=== PATIENT | female | born 1975 | race Caucasian/White ===

== ENCOUNTER 2022-10-18 10:38 | Outpatient (CLI) | payer BC, SELFPAY | END 2022-10-18 10:39 | disposition home or self-care (01) | LOC: NFLDREF 10:39 | PROVIDERS: Visit Provider Obstetrics & Gynecology | DX: N92.0 Excessive and frequent menstruation with regular cycle (principal) | CPT/HCPCS: 84443 ==

== ENCOUNTER 2022-10-22 13:59 | Outpatient (CLI) | payer BC, SELFPAY ==
--- NOTE | 2022-10-22 14:00 | CRLHL7_ITS ---
For Patients: As a result of the Century Cures Act, medical imaging exams and procedure reports are released immediately into your electronic medical record. You may view this report before your referring provider. If you have questions, please contact your health care provider. INDICATION: Menorrhagia. COMPARISON: Pelvic ultrasound 04/15/2017. TECHNIQUE: 2D dotson scale and color Doppler images were acquired of the pelvis using a transabdominal and transvaginal approach. FINDINGS: The uterus is anteverted in position. The uterus is enlarged measuring 14.4 cm in length by 8.2 cm in AP diameter by 10.5 cm in transverse dimension. There is a 8.5 x 6.4 x 8.2 cm fibroid in the posterior mid to upper uterus which causes mass effect on the endometrium. This has increased in size since prior exam, previously measuring 3.3 x 3.2 x 4.0 cm. The endometrial lining measures 7 mm in composite thickness. Multiple large nabothian cysts in the cervix. The right ovary was not visualized. The left ovary measures 3.2 x 1.5 x 2.3 cm and demonstrates presence of blood flow. No free fluid in the cul-de-sac. IMPRESSION: 1. Large posterior uterine fibroid which causes mass effect on the endometrium. 2. Endometrial lining within normal limits for a premenopausal female. 3. Multiple large nabothian cysts. Dictated by Amirah Pedraza MD @ 10/24/2022 6:09:28 PM (Electronically Signed)
== END 2022-10-22 14:00 | disposition home or self-care (01) ==
LOC: US 13:59
PROVIDERS: Visit Provider Obstetrics & Gynecology
DX: N92.0 Excessive and frequent menstruation with regular cycle (principal); D25.9 Leiomyoma of uterus, unspecified; N88.8 Other specified noninflammatory disorders of cervix uteri
CPT/HCPCS: 76830; 76856

== ENCOUNTER 2024-09-25 08:56 | Outpatient (CLI) | payer OTHER, SELFPAY | END 2024-09-25 08:57 | disposition home or self-care (01) | LOC: NFLDREF 09-29 00:42 | PROVIDERS: PCP Emergency Medicine; Referring Provider Emergency Medicine; Visit Provider Emergency Medicine | DX: D50.9 Iron deficiency anemia, unspecified (principal); E55.9 Vitamin D deficiency, unspecified; K76.0 Fatty (change of) liver, not elsewhere classified; R41.89 Other symptoms and signs involving cognitive functions and awareness; Z13.1 Encounter for screening for diabetes mellitus | CPT/HCPCS: 80053; 80061; 82306; 82607; 82728; 83540; 83550; 84443 ==

== ENCOUNTER 2024-09-27 09:35 | Outpatient (CLI) | payer OTHER, SELFPAY ==
[2024-09-29 05:19] LABS: HPV Source Cervical; HPV, High Risk by TMA Not Detected
== END 2024-09-27 09:36 | disposition home or self-care (01) ==
PROVIDERS: PCP Emergency Medicine; Visit Provider Emergency Medicine
DX: D50.9 Iron deficiency anemia, unspecified (principal); Z12.4 Encounter for screening for malignant neoplasm of cervix
CPT/HCPCS: 87624; 87625; 88141; 88142

== ENCOUNTER 2024-10-11 13:48 | Outpatient (CLI) | payer OTHER, SELFPAY ==
--- NOTE | 2024-10-11 14:00 | CRLHL7_ITS ---
For Patients: As a result of the Century Cures Act, medical imaging exams and procedure reports are released immediately into your electronic medical record. You may view this report before your referring provider. If you have questions, please contact your health care provider. INDICATION: Iron deficiency anemia. Uterine fibroid. TECHNIQUE: Ultrasound pelvis transabdominal and transvaginal to better evaluate the endometrium. COMPARISON: 10/22/2022. FINDINGS: Uterus: Size: 13 x 8 x 8 cm. Mass: A prominent fibroid measures approximately 7 cm. Multiple prominent nabothian cysts with the largest measuring 4 cm. Endometrium: Transvaginal imaging was performed to better evaluate the endometrium. The endometrium is indistinct and distorted by the fibroid. Right ovary: Not visualized. Left ovary: Not visualized. Cul-de-sac and adnexa: Significant free Fluid: No. Mass: No. IMPRESSION: Unchanged prominent 7 cm uterine fibroid. There also prominent nabothian cysts. Neither ovary is visualized. Remainder of the exam is unremarkable. Dictated by Elie Carreno MD @ 10/11/2024 3:56:07 PM (Electronically Signed)
== END 2024-10-11 13:49 | disposition home or self-care (01) ==
PROVIDERS: PCP Emergency Medicine; Visit Provider Emergency Medicine
DX: D50.9 Iron deficiency anemia, unspecified (principal); D25.9 Leiomyoma of uterus, unspecified; N92.4 Excessive bleeding in the premenopausal period
CPT/HCPCS: 76830; 76856

== ENCOUNTER 2024-11-01 08:30 | Outpatient (RCR) | payer OTHER, SELFPAY ==
[2024-09-26 10:16] VITALS: BP 108/72; PULSE 83; RESP 16; TEMP 36.6; O2SAT 96
[2024-09-26 10:33] VITALS: BP 124/78; PULSE 74; RESP 16; TEMP 36.7; O2SAT 99
[2024-09-26 11:03] VITALS: BP 101/66; PULSE 72; RESP 16; TEMP 36.2; O2SAT 99
[2024-09-26 11:33] VITALS: BP 96/66; PULSE 73; RESP 18; TEMP 36.2; O2SAT 97
[2024-09-26 12:25] VITALS: BP 101/67; PULSE 85; RESP 20; TEMP 37.1; O2SAT 97
[2024-09-26 13:29] VITALS: BP 104/69; PULSE 83; RESP 16; TEMP 36.8; O2SAT 98
--- NOTE | 2024-10-24 14:02 | URNOTE ---
Request received for authorization for Iron Dextran (InFed) ([id number]). Prior authorization is not required per [facility] rep. Patricia Alonzo. Ref#[id number]. 10/24/24 at 1405pm.
[2024-11-01 08:27] VITALS: BP 98/65; PULSE 83; RESP 16; TEMP 35.9; O2SAT 95
[2024-11-01] MEDS: SODIUM CHLORIDE 0.9 % (FLUSH) 10 ML SYRINGE IVF (08:48)
[2024-11-01] MEDS: 0.9 % SODIUM CHLORIDE 500 ML 500 ML 100 ML IV (08:48)
[2024-11-01] MEDS: IRON DEXTRAN COMPLEX 25 MG in 0.9 % SODIUM CHLORIDE 100 ml 100 ML 402 MG IVPB (08:55)
[2024-11-01] MEDS: IRON DEXTRAN COMPLEX 975 MG in 0.9 % SODIUM CHLORIDE 250 ml 250 ML 269.5 MG IVPB (10:23)
== END 2025-03-24 23:59 | disposition home or self-care (01) ==
LOC: CCIC 08:30
PROVIDERS: PCP Emergency Medicine; Referring Provider Emergency Medicine; Visit Provider Clinical Nurse Specialist
DX: D50.9 Iron deficiency anemia, unspecified (principal)
CPT/HCPCS: 36415; 36430; 86850; 86900; 86901; 86922; 96365; 96366; J1750; J7030; J7050; P9016

== ENCOUNTER 2024-11-06 07:56 | Outpatient (CLI) | payer OTHER, SELFPAY ==
--- NOTE | 2024-11-06 09:35 | W.ANESCHARGE ---
Anesthesia Charges Start Date/Time Anesthesia Start Date: 11/06/24 Anesthesia Start Time: 08:53 Stop Date/Time Anesthesia Stop Date: 11/06/24 Anesthesia Stop Time: 09:32
== END 2024-11-06 07:57 | disposition home or self-care (01) ==
LOC: OP CLINIC 07:56
PROVIDERS: PCP Emergency Medicine; Visit Provider Surgery
DX: D50.9 Iron deficiency anemia, unspecified (principal); K31.89 Other diseases of stomach and duodenum; K57.30 Diverticulosis of large intestine without perforation or abscess without bleeding
CPT/HCPCS: 00813; 43239; 45378; 88305; J2704; J3490

== ENCOUNTER 2025-01-17 11:45 | Outpatient (CLI) | payer OTHER, SELFPAY | END 2025-01-17 11:46 | disposition home or self-care (01) | LOC: LKVREF 11:45 | PROVIDERS: PCP Emergency Medicine; Visit Provider Emergency Medicine | DX: D50.9 Iron deficiency anemia, unspecified (principal) | CPT/HCPCS: 82728 ==

== ENCOUNTER 2025-02-21 07:58 | Outpatient (CLI) | payer OTHER, SELFPAY ==
--- NOTE | 2025-02-21 09:20 | P.ANES_ITS ---
Anesthesia Charges Start Date/Time Anesthesia Start Date: 02/21/25 Anesthesia Start Time: 09:05 Stop Date/Time Anesthesia Stop Date: 02/21/25 Anesthesia Stop Time: 09:20 Coding CPT Codes CPT Codes: ANES UPR GI NDSC PX NOS - 87629 ([id number]) P3 - PATIENT W/SEVERE SYS DISEASE, QX - CATALYST IMPREGNATOR SVC W/ MD MED DIRECTION, QK - DENTAL LABORATORY WORKER 2-4 CNCRNT ANES PROC
--- NOTE | 2025-02-21 09:20 | W.ANESCHARGE ---
Anesthesia Charges Start Date/Time Anesthesia Start Date: 02/21/25 Anesthesia Start Time: 09:05 Stop Date/Time Anesthesia Stop Date: 02/21/25 Anesthesia Stop Time: 09:20 Coding CPT Codes CPT Codes: ANES UPR GI NDSC PX NOS - 12867 ([id number]) P3 - PATIENT W/SEVERE SYS DISEASE, QX - CASH PERSON SVC W/ MD MED DIRECTION, QK - SINGLE WIRE SAW OPERATOR 2-4 CNCRNT ANES PROC
--- NOTE | 2025-02-21 09:48 | P.ANES_ITS ---
Anesthesia Charges Start Date/Time Anesthesia Start Date: 02/21/25 Anesthesia Start Time: 09:05 Stop Date/Time Anesthesia Stop Date: 02/21/25 Anesthesia Stop Time: 09:20 Coding CPT Codes CPT Codes: ANES UPR GI NDSC PX NOS - 81604 ([id number]) QK - K 8 SCHOOL PRINCIPAL 2-4 CNCRNT ANES PROC, QX - DINING HOST SVC W/ MD MED DIRECTION, P3 - PATIENT W/SEVERE SYS DISEASE
--- NOTE | 2025-02-21 09:48 | W.ANESCHARGE ---
Anesthesia Charges Start Date/Time Anesthesia Start Date: 02/21/25 Anesthesia Start Time: 09:05 Stop Date/Time Anesthesia Stop Date: 02/21/25 Anesthesia Stop Time: 09:20 Coding CPT Codes CPT Codes: ANES UPR GI NDSC PX NOS - 22175 ([id number]) QK - BRICK EXTRUDER OPERATOR 2-4 CNCRNT ANES PROC, QX - TUNGSTEN TENDER SVC W/ MD MED DIRECTION, P3 - PATIENT W/SEVERE SYS DISEASE
== END 2025-02-21 07:59 | disposition home or self-care (01) ==
LOC: OP CLINIC 07:59
PROVIDERS: PCP Emergency Medicine; Visit Provider Surgery
DX: Z86.19 Personal history of other infectious and parasitic diseases (principal); Z86.2 Personal history of diseases of the blood and blood-forming organs and certain disorders involving the immune mechanism
CPT/HCPCS: 00731; 43239; 88305; 88342; J2704; J3490

== ENCOUNTER 2025-04-18 10:14 | Outpatient (CLI) | payer OTHER, SELFPAY | END 2025-04-18 10:15 | disposition home or self-care (01) | LOC: LKVREF 10:15 | PROVIDERS: PCP Emergency Medicine; Visit Provider Emergency Medicine | DX: R20.2 Paresthesia of skin (principal) | CPT/HCPCS: 82607 ==